=== PATIENT | female | born 1970 | race Caucasian/White ===

== ENCOUNTER 2023-06-02 10:52 | Day surgery (SDC) | payer BC, MEDICAID ==
[~2023-06-02 10:52] MED LIST: Lactated Ringers 1,000 ML IV SCH; Propofol 200 MG/20 ML SDV ONE; fentaNYL 100 MCG/2 ML SDV ONE
[2023-06-02] MEDS: Lactated Ringers 1,000 ML IV SCH (11:05)
[2023-06-02] MEDS ORDERED: Propofol 200 MG/20 ML SDV ONE (12:19)
== END 2023-06-02 13:40 | disposition home or self-care (01) ==
LOC: VM.SDS 10:52
PROVIDERS: ATTEND Surgery
DX: Z12.11 Encounter for screening for malignant neoplasm of colon (principal); I10 Essential (primary) hypertension; N30.00 Acute cystitis without hematuria; L70.8 Other acne; F43.23 Adjustment disorder with mixed anxiety and depressed mood; E66.9 Obesity, unspecified; Z68.32 Body mass index [BMI] 32.0-32.9, adult; Z79.899 Other long term (current) drug therapy; Z91.041 Radiographic dye allergy status
CPT/HCPCS: 00812; J2704; J3010; J7120